=== PATIENT | male | born 1960 | race Caucasian/White ===

== ENCOUNTER → 2016-09-18 | Outpatient (CLI) | payer OTHER, MEDICAID ==
[2016-09-18] VITALS (8 sets, daily range): BP systolic 109–121; BP diastolic 63–76
[~2016-09-18] VITALS: Ht 175.3 cm; Wt 70.8 kg
[~2016-09-18] MED LIST: CEFAZOLIN 1000MG PREMIX 50 ML IV ONE; DIPHENHYDRAMINE 50MG/ML VIAL IV ONE; DOCU-150 PO; DUTASTERIDE; FENT1PAT4 TD; FENTANYL CITRATE/PF 50MCG/ML 2ML VIAL IV ONE; FENTANYL CITRATE/PF 50MCG/ML 2ML VIAL ONE; GABA-531 PO; MICAFUNGIN; TAMS-11 PO; famotidine; senna; vancomycin
== END | disposition home or self-care (01) ==
LOC: RAD 08:33
PROVIDERS: ATTEND Internal Medicine Critical Care Medicine
DX: K63.2 Fistula of intestine (principal); B19.10 Unspecified viral hepatitis B without hepatic coma; M47.816 Spondylosis without myelopathy or radiculopathy, lumbar region; N28.1 Cyst of kidney, acquired; K82.8 Other specified diseases of gallbladder; K80.20 Calculus of gallbladder without cholecystitis without obstruction; Z97.8 Presence of other specified devices
CPT/HCPCS: 47490; 74176; C1729; J7040; J3010

== ENCOUNTER → 2016-11-14 | Outpatient (CLI) | payer OTHER, MEDICAID ==
[~2016-11-14] VITALS: Ht 170.2 cm; Wt 68.0 kg
[2016-11-14] VITALS (9 sets, daily range): BP systolic 95–98; BP diastolic 55–76
[~2016-11-14] MED LIST changes: -CEFAZOLIN 1000MG PREMIX 50 ML IV ONE; -DIPHENHYDRAMINE 50MG/ML VIAL IV ONE; +IOHEXOL-300 100 ML BOTTLE ONE; +SODIUM CHLORIDE 0.9% 10ML VIAL ONE
== END | disposition home or self-care (01) ==
LOC: CT 08:06
PROVIDERS: ATTEND Surgery
DX: K63.2 Fistula of intestine (principal); N28.1 Cyst of kidney, acquired; N13.30 Unspecified hydronephrosis; I51.7 Cardiomegaly; I31.3 Pericardial effusion (noninflammatory); K82.9 Disease of gallbladder, unspecified
CPT/HCPCS: 49180; 74176; 74177; 77012; 87070; 87075; 87077; 87186; 87205; A4216; C1729; C1769; Q9967; J3010; L8514

== ENCOUNTER → 2017-01-15 | Outpatient (CLI) | payer OTHER, MEDICAID ==
[~2017-01-15] MED LIST changes: -FENTANYL CITRATE/PF 50MCG/ML 2ML VIAL IV ONE; -FENTANYL CITRATE/PF 50MCG/ML 2ML VIAL ONE; -IOHEXOL-300 100 ML BOTTLE ONE; -SODIUM CHLORIDE 0.9% 10ML VIAL ONE
== END | disposition home or self-care (01) ==
LOC: US 10:00
PROVIDERS: ATTEND Internal Medicine Critical Care Medicine
DX: C61 Malignant neoplasm of prostate (principal)
CPT/HCPCS: 76872

== ENCOUNTER → 2017-03-19 | Day surgery (SDC) | payer MEDICAID, OTHER ==
[~2017-03-19] MED LIST changes: +IOHEXOL-300 50 ML BOTTLE IV ONE
== END | disposition home or self-care (01) ==
LOC: RAD 09:51
PROVIDERS: ATTEND Internal Medicine Critical Care Medicine
DX: K63.2 Fistula of intestine (principal); L02.211 Cutaneous abscess of abdominal wall
CPT/HCPCS: 74176; Q9967